=== PATIENT | male | born 1980 | race African-American/Black ===

== ENCOUNTER 2019-07-28 18:50 | Emergency (ER) | payer OTHER ==
[~2019-07-28] VITALS: Ht 188 cm; Wt 122.7 kg
[2019-07-28 19:00] VITALS: BP 165/109
[2019-07-28] MEDS ORDERED: PENI500T PO (19:53)
--- NOTE | 2019-07-28 19:53 | PHYS DOC ---
Past Medical History Past Medical History: No Pertinent History Past Surgical History: No Surgical History Smoking Status: Current Some Day Smoker Alcohol Use: Occasionally Drug Use: None General Adult EDM: Chief Complaint: DENTAL PROBLEM HPI: HPI: Patient is a 39 year old AA male who presents to the emergency department with complaints of lower left quadrant dental pain for the last 2 days. Patient states that he previously had his wisdom tooth removed and part of it was retained. He denies any fever, cough, sore throat, nausea, vomiting, diarrhea, abdominal pain or chest pain. He currently rates pain a 10 out of 10 on the pain scale, he denies any alleviating factors, the pain is worse if the area is touched or he tries to chew anything. Review of Systems: Review of Systems: Complete review of systems is negative unless otherwise documented in the HPI. Heart Score: Risk Factors: Risk Factors: DM, Current or recent (<one month) smoker, HTN, HLP, family history of CAD, obesity. Risk Scores: Score 0 - 3: 2.5% MACE over next 6 weeks - Discharge Home Score 4 - 6: 20.3% MACE over next 6 weeks - Admit for Clinical Observation Score 7 - 10: 72.7% MACE over next 6 weeks - Early Invasive Strategies Allergies: Allergies: Allergies Coded Allergies Type Severity Reaction Last Updated Verified No Known Drug Allergies 01/19/16 No Physical Exam: PE: Constitutional: Well developed, well nourished, no acute distress, non-toxic appearance. HENT: Normocephalic, atraumatic, bilateral external ears normal, nose normal; broken tooth in lower left quadrant with dental caries present, no visible dental abscess. [] Eyes: PERRLA, EOMI, conjunctiva normal, no discharge. [] Neck: Normal range of motion, supple, no stridor. [] Cardiovascular:Heart rate regular rhythm Lungs & Thorax: Respirations even and unlabored, no retractions, no respiratory distress Skin: Warm, dry, no erythema, no rash. [] Extremities: No cyanosis, ROM intact, no edema. [] Neurologic: Alert and oriented X 3, no focal deficits noted. [] Psychologic: Affect normal, judgement normal, mood normal. [] Lateral eye bilateral check] take Ambien Current Patient Data: Vital Signs: Vital Signs Date Time Temp Pulse Resp B/P (MAP) Pulse Ox O2 Delivery O2 Flow Rate FiO2 07/28/19 19:00 98.0 87 18 165/109 (127) 96 Room Air 98.0 EKG: EKG: [] Radiology/Procedures: Radiology/Procedures: [] Course & Med Decision Making: Course & Med Decision Making Pertinent Labs and Imaging studies reviewed. (See chart for details) [] Dragon Disclaimer: Dragon Disclaimer: This electronic medical record was generated, in whole or in part, using a voice recognition dictation system. Departure Departure Impression: Primary Impression: Infected dental carries Additional Impression: Dentalgia Disposition: HOME, SELF-CARE Condition: STABLE Referrals: UNKNOWN PCP NAME (PCP) Patient Instructions: Dental Caries, Dental Pain, [id number] Additional Instructions: Fill prescription(s) and use as directed. Follow up with dentist using the referral list provided. Return to the ER if symptoms worsen. Scripts Penicillin V Potassium (PENICILLIN V POTASSIUM) 500 Mg Tablet 1 TAB PO QID for 10 Days, #40 TAB 0 Refills Prov: DONG MERRILL LABOR COMMISSIONER 07/28/19 Justicifation of Admission Dx: Justifications for Admission: Justification of Admission Dx: No DONG MERRILL LABOR COMMISSIONER Jul 28, 2019 19:53
== END 2019-07-28 19:58 | disposition home or self-care (01) ==
LOC: ER 18:50
DX: K04.7 Periapical abscess without sinus (principal); K08.89 Other specified disorders of teeth and supporting structures; F17.200 Nicotine dependence, unspecified, uncomplicated
CPT/HCPCS: 99283

== ENCOUNTER 2020-10-03 10:51 | Emergency (ER) | payer OTHER ==
[~2020-10-03] VITALS: Ht 188 cm; Wt 115.9 kg
[~2020-10-03 10:51] MED LIST: PENI500T PO
[2020-10-03] MEDS ORDERED: IV NORMAL SALINE 1000ML BAG 1,000 ML IV SCH (12:00)
[2020-10-03 12:08] LABS: BASO % 0 % (0-3); EOS % 0 % (0-3); HEMATOCRIT 45.9 % (39.0-53.0); HEMOGLOBIN 15.6 g/dL (13.0-17.5); LYMPH # 1.6 x10^3/uL (1.0-4.8); LYMPH % 18 % (24-48); MEAN CORPUSCULAR HEMOGLOBIN 29 pg (25-35); MEAN CORPUSCULAR HGB CONC 34 g/dL (31-37); MEAN CORPUSCULAR VOLUME 86 fL (79-100); MONO # 0.9 x10^3/uL (0.0-1.1); MONO % 10 % (0-9); NEUT # 6.3 x10^3/uL (1.8-7.7); NEUT % 72 % (31-73); PLATELET COUNT 280 x10^3/uL (140-400); RED BLOOD COUNT 5.36 x10^6/uL (4.30-5.70); RED CELL DISTRIBUTION WIDTH 13.6 % (11.5-14.5); WHITE BLOOD COUNT 8.8 x10^3/uL (4.0-11.0)
[2020-10-03 12:12] LABS: BASE EXCESS COOX 3 mmol/L (-3-3); CORRECTED PCO2 COOX 38 mmHg; CORRECTED PH COOX 7.46; CORRECTED PO2 COOX 98 mmHg; HCO3 COOX 26 mmol/L (21-28); METHEMOGLOBIN 0.4 % (0.0-1.9); OXYHEMOGLOBIN 96.5 %; SAT O2 COOX 97 % (92-99)
[2020-10-03 12:13] LABS: PCO2 COOX 35 mmHg (35-46); PO2 COOX 89 mmHg (75-108)
[2020-10-03 12:25] LABS: CALCIUM 8.7 mg/dL (8.5-10.1); CREATININE 1.5 mg/dL (0.7-1.3); POTASSIUM 4.3 mmol/L (3.5-5.1)
--- NOTE | 2020-10-03 12:33 | RAD ---
INDICATION: Reason: soa, cough / Spl. Instructions: / History: COMPARISON: None. FINDINGS: Single view of chest obtained. Patchy opacities throughout the bilateral lungs with interstitial and alveolar component. Hypoexpanded exam. Cardiac silhouette unremarkable. IMPRESSION: * Bilateral pulmonary opacities. Could be infectious in nature from bilateral pneumonia. Edema could also have this appearance but would be less likely in a patient of this age unless they have history of cardiovascular disease. Electronically signed by: Haile Rowley MD (10/03/2020 12:31 PM) [id number]
[2020-10-03 12:37] LABS: ALBUMIN 2.9 g/dL (3.4-5.0); ALBUMIN/GLOBULIN RATIO 0.6 (1.0-1.7); TOTAL BILIRUBIN 1.4 mg/dL (0.2-1.0)
[2020-10-03] MEDS ORDERED: IBUPROFEN 200 MG TABLET. PO ONE (12:45)
[2020-10-03] MEDS ORDERED: DEXAMETHASONE SOD PHOS 20 MG/5 ML VIAL. IV ONE (12:45)
[2020-10-03] MEDS ORDERED: AZITHRMYCN 500MG IVPB FOR OMNI 250 ML IV ONE (13:00)
--- NOTE | 2020-10-03 13:02 | PHYS DOC ---
Past Medical History Past Medical History: No Pertinent History (MIGUEL SALES NEUROLOGICAL SURGEON) Past Surgical History: No Surgical History (MIGUEL SALES NEUROLOGICAL SURGEON) Smoking Status: Current Some Day Smoker Additional Information: no smoking x 8 days 1 cigarette daily Alcohol Use: Occasionally Drug Use: None (MIGUEL SALES NEUROLOGICAL SURGEON) General Adult EDM: Chief Complaint: FLU SYMPTOM HPI: HPI: Patient is a 40 year old male who presents with 8 days of fatigue, fever, cough,, shortness of breath and rest of his family is sick. He is 89% on room air. When he arrived he is on 4 L at 97%. He rates his overall pain a 8 out of 10. He is febrile. He denies syncope, dizziness, abdominal pain, vomiting, focal weakness, numbness or tingling, vision change. He is a smoker. (MIGUEL SALES NEUROLOGICAL SURGEON) Review of Systems: Review of Systems: Constitutional: +fever or chills. [] Eyes: Denies change in visual acuity. [] HENT: Denies nasal congestion or sore throat. [] Respiratory: + cough or +shortness of breath. [] Cardiovascular: + chest pain or edema. [] GI: Denies abdominal pain, +nausea, denies vomiting, bloody stools or +diarrhea. [] : Denies dysuria. [] Musculoskeletal: Denies back pain or joint pain. +bodyaches[] Integument: Denies rash. [] Neurologic: + headache, denies focal weakness or sensory changes. [] Endocrine: Denies polyuria or polydipsia. [] Lymphatic: Denies swollen glands. [] Psychiatric: Denies depression or anxiety. [] (MIGUEL SALES NEUROLOGICAL SURGEON) Heart Score: C/O Chest Pain: Yes HEART Score for Chest Pain: HEART Score for Chest Pain Response (Comments) Value History Slighlty/Non-Suspicious 0 ECG Normal 0 Age < 45 0 Risk Factors 1 or 2 Risk Factors 1 Troponin < Normal Limit 0 Total 1 Risk Factors: Risk Factors: DM, Current or recent (<one month) smoker, HTN, HLP, family history of CAD, obesity. Risk Scores: Score 0 - 3: 2.5% MACE over next 6 weeks - Discharge Home Score 4 - 6: 20.3% MACE over next 6 weeks - Admit for Clinical Observation Score 7 - 10: 72.7% MACE over next 6 weeks - Early Invasive Strategies (MIGUEL SALES APRN) Current Medications: Current Medications Medications (Trade) Dose Ordered Sig/Laura Start Time Stop Time Status Last Admin Dose Admin Dexamethasone Sodium Phosphate (Decadron) 10 mg 1X ONCE 10/03/20 12:45 10/03/20 12:46 DC Ibuprofen (Motrin) 600 mg 1X ONCE 10/03/20 12:45 10/03/20 12:46 DC Sodium Chloride 1,000 ml @ 1,000 mls/hr Q1H 10/03/20 12:00 10/03/20 12:59 (MIGUEL SALES APRN) Allergies: Allergies: Allergies Coded Allergies Type Severity Reaction Last Updated Verified No Known Drug Allergies 10/03/20 No (MIGUEL SALES APRN) Physical Exam: PE: Constitutional: Well developed, well nourished, no acute distress, non-toxic appearance. [] HENT: Normocephalic, atraumatic, bilateral external ears normal, oropharynx moist, no oral exudates, nose normal. [] Eyes: PERRLA, EOMI, conjunctiva normal, no discharge. [] Neck: Normal range of motion, no tenderness, supple, no stridor. [] Cardiovascular:Heart rate regular rhythm, no murmur [] Lungs & Thorax: Bilateral upper breath sounds clear lower diminished to auscultation [] Abdomen: Bowel sounds normal, soft, no tenderness, no masses, no pulsatile masses. [] Skin: Warm, dry, no erythema, no rash. [] Back: No tenderness, no CVA tenderness. [] Extremities: No tenderness, no cyanosis, no clubbing, ROM intact, no edema. [] Neurologic: Alert and oriented X 3, normal motor function, normal sensory function, no focal deficits noted. [] Psychologic: Affect normal, judgement normal, mood normal. [] (MIGUEL SALES APRN) Current Patient Data: Labs: Laboratory Tests Test 10/03/20 10:52 10/03/20 12:13 White Blood Count 8.8 x10^3/uL (4.0-11.0) Red Blood Count 5.36 x10^6/uL (4.30-5.70) Hemoglobin 15.6 g/dL (13.0-17.5) Hematocrit 45.9 % (39.0-53.0) Mean Corpuscular Volume 86 fL (79-100) Mean Corpuscular Hemoglobin 29 pg (25-35) Mean Corpuscular Hemoglobin Concent 34 g/dL (31-37) Red Cell Distribution Width 13.6 % (11.5-14.5) Platelet Count 280 x10^3/uL (140-400) Neutrophils (%) (Auto) 72 % (31-73) Lymphocytes (%) (Auto) 18 % (24-48) L Monocytes (%) (Auto) 10 % (0-9) H Eosinophils (%) (Auto) 0 % (0-3) Basophils (%) (Auto) 0 % (0-3) Neutrophils # (Auto) 6.3 x10^3/uL (1.8-7.7) Lymphocytes # (Auto) 1.6 x10^3/uL (1.0-4.8) Monocytes # (Auto) 0.9 x10^3/uL (0.0-1.1) Eosinophils # (Auto) 0.0 x10^3/uL (0.0-0.7) Basophils # (Auto) 0.0 x10^3/uL (0.0-0.2) Sodium Level 137 mmol/L (136-145) Potassium Level 4.3 mmol/L (3.5-5.1) Chloride Level 99 mmol/L (98-107) Carbon Dioxide Level 30 mmol/L (21-32) Anion Gap 8 (6-14) Blood Urea Nitrogen 13 mg/dL (8-26) Creatinine 1.5 mg/dL (0.7-1.3) H Estimated GFR (Cockcroft-Gault) 63.0 BUN/Creatinine Ratio 9 (6-20) Glucose Level 106 mg/dL (70-99) H Lactic Acid Level 0.9 mmol/L (0.4-2.0) Calcium Level 8.7 mg/dL (8.5-10.1) Total Bilirubin 1.4 mg/dL (0.2-1.0) H Aspartate Amino Transferase (AST) 71 U/L (15-37) H Alanine Aminotransferase (ALT) 88 U/L (16-63) H Alkaline Phosphatase 86 U/L (46-116) Troponin I Quantitative < 0.017 ng/mL (0.000-0.055) UC-Ijj-O-Type Natriuretic Peptide 21 pg/mL (0-124) Total Protein 8.0 g/dL (6.4-8.2) Albumin 2.9 g/dL (3.4-5.0) L Albumin/Globulin Ratio 0.6 (1.0-1.7) L SARS-CoV-2 Antigen (Rapid) Negative (NEGATIVE) O2 Saturation 97 % (92-99) Arterial Blood pH 7.48 (7.35-7.45) H Arterial Blood pH (Temp corrected) 7.46 Arterial Blood pCO2 at Patient Temp 35 mmHg (35-46) Arterial Blood pCO2 (Temp correct) 38 mmHg Arterial Blood pO2 at Patient Temp 89 mmHg (75-108) Arterial Blood pO2 (Temp corrected) 98 mmHg Arterial Blood HCO3 26 mmol/L (21-28) Arterial Blood Base Excess 3 mmol/L (-3-3) Oxyhemoglobin 96.5 % Methemoglobin 0.4 % (0.0-1.9) Carbon Monoxide, Quantitative 0.0 % (0.0-1.9) FiO2 32%/3lnc Laboratory Tests 10/03/20 10:52 Laboratory Tests 10/03/20 10:52 Vital Signs: Vital Signs Date Time Temp Pulse Resp B/P (MAP) Pulse Ox O2 Delivery O2 Flow Rate FiO2 10/03/20 10:57 100.3 101 24 105/59 (127) 97 Nasal Cannula 4.0 100.3 (MIGUEL SALES APRN) EKG: EK and read by Dr. Vinson sinus rhythm and no STEMI (MIGUEL SALES APRN) Radiology/Procedures: Radiology/Procedures: [] Impression: [facility] [address] [place], [place] [id number] IMAGING REPORT Signed PATIENT: POP GÓMEZ ACCOUNT: [id number] : 1980 LOCATION: ER AGE: 40 SEX: M EXAM STATUS: REG ER ORD. PHYSICIAN: MIGUEL SALES APRN REASON: soa, cough PROCEDURE: PORTABLE CHEST 1V INDICATION: Reason: soa, cough / Spl. Instructions: / History: COMPARISON: None. FINDINGS: Single view of chest obtained. Patchy opacities throughout the bilateral lungs with interstitial and alveolar component. Hypoexpanded exam. Cardiac silhouette unremarkable. IMPRESSION: * Bilateral pulmonary opacities. Could be infectious in nature from bilateral pneumonia. Edema could also have this appearance but would be less likely in a patient of this age unless they have history of cardiovascular disease. Electronically signed by: Susy Chacon MD (10/03/2020 12:31 PM) DESKTOP- [id number] DICTATED and SIGNED BY: SUSY CHACON MD DATE: 10/03/20 [id number] 0 (MIGUEL SALES APRN) Course & Med Decision Making: Course & Med Decision Making Pertinent Labs and Imaging studies reviewed. (See chart for details) COVID-19 CRITERIA: The patient was evaluated during the global COVID-19 pandemic, and that diagnosis was suspected/considered upon their initial presentation. Their evaluation, treatment and testing was consistent with curr ent guidelines for patients who present with complaints or symptoms that may be related to COVID-19. See HPI. Alert and oriented x4. Ambulatory with a steady gait. Speaks in full clear sentences. Chest x-ray shows pneumonia. Patient's rapid Covid is negative. Lungs are clear in upper lobes but diminished in lower lobes. Skin pink warm and dry. Patient send out Covid is positive. Patient is given dexamethasone, normal saline and azithromycin in the ED. Patient was walked around the room and became very winded and needed to stop and sit. He dropped down to around 90%. Patient is now sitting 93-94% on room air. I spoke to Dr. Fuller about this patient and he went in to see the patient. He gave the patient a pulse oximetry to take home. He states patient is stable to go home. [] (MIGUEL SALES APRN) Course & Med Decision Making I have participated in the care of this patient and I have reviewed and agree w ith all pertinent clinical information above including history, exam, and recommendations. Dr. Fuller was consulted for admission, has examined the patient and elected to procede with trial of discharge with pulse ox. Patient understands return precautions. Christopher Vinson DO (CHRISTOPHER VINSON DO) Zach Disclaimer: Zach Disclaimer: This electronic medical record was generated, in whole or in part, using a voice recognition dictation system. (MIGUEL SALES APRN) COVID-19 Patient Risks: Age 65 or older: No Sign of co-morbidity: Yes Exp to person + for COVID: Yes Exp to PUI: No Travel from affected area: No Lower respiratory symptoms: Yes Fever: Yes Other: No (MIGUEL SALES APRN) PPE Use: Full PPE with N95 mask or PAPR: Yes (MIGUEL SALES APRN) Departure Departure Impression: Primary Impression: Pneumonia Qualified Codes: J18.9 - Pneumonia, unspecified organism Additional Impressions: COVID-19 Dehydration Disposition: HOME / SELF CARE / HOMELESS Condition: STABLE Referrals: NO PCP (PCP) Patient Instructions: Dehydration, Adult, Pneumonia, Adult Additional Instructions: Follow-up with primary care provider if needed. Take medication as prescribed and with food. If your oxygen saturation falls below 89% you return emergency room, drink plenty of fluid. Scripts Azithromycin (AZITHROMYCIN TABLET) 250 Mg Tablet 1 PKG PO UD for 5 Days, #6 TAB 0 Refills 2 the first day followed by 1 for days 2-5 Prov: MIGUEL SALES APRN 10/03/20 Albuterol Sulfate (PROAIR HFA INHALER) 8.5 Gm Hfa.aer.ad 1 PUFF INH PRN Q6HRS PRN for SHORTNESS OF BREATH, #1 EACH 0 Refills Prov: MIGUEL SALES APRN 10/03/20 Methylprednisolone (MEDROL) 4 Mg Tab.ds.pk 1 PKG PO UD, #1 PKG Prov: MIGUEL SALES APRN 10/03/20 MIGUEL SALES APRN Oct 03, 2020 13:02 CHRISTOPHER VINSON DO Oct 03, 2020 16:08
--- NOTE | 2020-10-03 14:21 | NUR ---
Per Claire SAWYERN instructions, Pt ambulated without supplemental oxygen. While remaining in ER #[id number], Pt ambulated to and from the far counter and back to the ER bed when patient reported needing to take a rest. Pt's oxygen reading via portable oxygen sensor was as low as 91 percent on room air and as high as 95 percent on room air. Claire MARTINES notified.
--- NOTE | 2020-10-03 14:37 | NUR ---
Per Claire MARTINES request, Pt placed on oxygen at 2 lpm via nasal cannula.
[2020-10-03] MEDS ORDERED: AZIT250T6 PO (15:36)
[2020-10-03] MEDS ORDERED: METH4TAB2 PO (15:36)
[2020-10-03] MEDS ORDERED: ALBU2.5V8 INH (15:36)
--- NOTE | 2020-10-03 16:24 | NUR ---
IP: Informed Charlee in ED of positive COVID.
[2020-10-03 17:10] VITALS: BP 101/68
--- NOTE | 2020-10-03 18:36 | EKG ---
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
== END 2020-10-03 17:10 | disposition home or self-care (01) ==
LOC: ER 10:51
DX: U07.1 COVID-19 (principal); J18.9 Pneumonia, unspecified organism; E86.0 Dehydration; F17.210 Nicotine dependence, cigarettes, uncomplicated
CPT/HCPCS: 36415; 36600; 71045; 80053; 82805; 83605; 83880; 84484; 85025; 87040; 87426; 93005; 96365; 96375; 99285; J0456; J1100; J7030; U0003; U0005